=== PATIENT | male | born 1955 | race Caucasian/White ===

== ENCOUNTER → 2016-06-23 | Outpatient (CLI) | payer BC ==
[~2016-06-23] MED LIST: ADVIL200 MG PO; CYMBALTA30 MG PO; LIDODERM1 EACH TP; LYRICA25 MG PO; MELOXICAM15 MG PO; RELAFEN 750MG750 MG PO; TIZANIDINE HCL 44 MG NG
--- NOTE | 2016-06-24 10:28 | RADIOLOGY REPORT PS360 ---
US SOFT TISSUE HEAD/NECK HISTORY: Palpable region of the mandible on the right NEOPLASM RT JAW ORDERING PHYSICIAN: KRISTY TODD APRN PATIENT AGE: 61 years COMPARISON: None FINDINGS: There is a nonspecific oval area of decreased echogenicity in the subcutaneous tissues overlying the mandible on the right corresponding to the palpable abnormality. As measures 3 x 2 mm. This does have some low-level internal echoes not being completely cystic. The etiology is indeterminate based on the sonographic findings. Clinical correlation is required. IMPRESSION: Indeterminate 3 x 2 mm hypoechoic nodule in the subcutaneous tissues of the right jaw corresponding palpable abnormality.
== END ==
LOC: RAD 13:45
DX: D48.7 Neoplasm of uncertain behavior of other specified sites (principal)

== ENCOUNTER 2016-07-28 08:08 | Day surgery (SDC) | payer BC ==
[~2016-07-28] VITALS: Ht 180.3 cm; Wt 93.0 kg
[~2016-07-28 08:08] MED LIST changes: -LYRICA25 MG PO
[2016-07-28 08:21] VITALS: BP 138/80
[2016-07-28 08:37] VITALS: BP 138/80
[2016-07-28 08:38] VITALS: BP 140/94
--- NOTE | 2016-07-28 08:43 | Procedure Note ---
Procedure detail Date of procedure: 07/28/16 Anesthesiologist: Brandon Meier CRNA Complications: None Pre-procedure diagnosis: Degenerative disc disease of the lumbar spine. Post-procedure diagnosis: same Indications for procedure: This patient's a pleasant 61-year-old white male that were treating her pain but for chronic low back pain secondary to degenerative disease lumbar spine multiple levels lumbar radicular symptoms. Patient rates his low back pain 3/10. However, patient is complaining of bilateral lower leg and feet pain. He describes the pain as constant, dull, sharp, stabbing. I discussed in detail with the patient regarding a repeat lumbar epidural steroid injection. He wishes to proceed.we will perform this today Procedure detail: Procedure: Lumbar epidural steroid injection under fluoroscopy Informed consent was obtained and the risks and benefits of the procedure were explained to the patient. The patient was taken to the procedure room and noninvasive monitors placed, including noninvasive blood pressure cuff and pulse oximeter. The back was viewed using C-arm Fluoroscopy and prepped using Betadine as a cleansing solution and the L4-L5 interspace was palpated. Skin and subcutaneous tissues were anesthetized using lidocaine 1.5% and a 25-gauge needle. After this, an 18-gauge Touhy epidural needle was placed into the L4-L5 interspace and advanced using fluoroscopic guidance and loss of resistance to air until the epidural space was encountered. After confirmation of needle placement in the epidural space, with dye, a solution containing lidocaine 1.5%, 4 mL and Depo-Medrol 80 mg were incrementally injected into the lumbar epidural space. The patient tolerated the procedure well with no complications. The patient was observed in the Pain Clinic and then discharged home neurologically intact. Plan and disposition: We will follow up with this patient in our clinic and reassess his symptoms at that time at 0842
[2016-07-28 08:51] VITALS: BP 147/86
[2016-08-17] MEDS ORDERED: LYRICA25 MG PO (10:56)
== END 2016-07-28 08:52 | disposition home or self-care (01) ==
LOC: PM 08:08
PROC: 3E0R33Z Introduction of Anti-inflammatory into Spinal Canal, Percutaneous Approach (ICD-10-PCS; principal; 2016-07-28)
PROC: 3E0R3BZ Introduction of Anesthetic Agent into Spinal Canal, Percutaneous Approach (ICD-10-PCS; 2016-07-28)
DX: M51.36 Other intervertebral disc degeneration, lumbar region (principal)
CPT/HCPCS: J1040; Q9966

== ENCOUNTER → 2017-01-29 | Outpatient (CLI) | payer BC ==
[~2017-01-29] MED LIST changes: +LYRICA25 MG PO; +NEXIUM40 MG PO
--- NOTE | 2017-02-01 05:20 | RADIOLOGY REPORT PS360 ---
MRI-L-SPINE W/O, MRI-3D RENDERING/MYELOGRAM HISTORY: Right-sided low back pain and groin pain, bilateral leg pain and numbness and tingling right side worsening left LUMBAR PAIN WORSENING ORDERING PHYSICIAN: JAQUAN TOMAS CRNA PATIENT AGE: 62 years COMPARISON: None TECHNIQUE: Standard multiplanar multiecho sequences are performed without contrast. 3-D MIP and myelographic images are also rendered and reviewed FINDINGS: There is normal alignment. The spinal cord ends at the L1-L2 level. T11-T12: Degenerative disc disease. L1-L2: Mild degenerative disc disease. L2-L3: Unremarkable. L3-L4: Mild bulging disc along with mild facet and ligamentum flavum hypertrophy with mild bilateral lateral recess narrowing. L4-L5: Mild bilateral lateral recess and foraminal narrowing from facet and ligamentum flavum hypertrophy. L5-S1: Degenerative disc disease with bulging disc with facet and ligamentum flavum hypertrophy and mild bilateral foraminal narrowing. There is mild retrolisthesis of L5 on S1 of 3 mm. There is minimal ectasia of the infrarenal abdominal aorta at 2.4 cm. IMPRESSION: 1. Multilevel lumbar spondylosis with bulging discs along with facet and ligamentum hypertrophy with foraminal and lateral recess narrowing as detailed above. Please see above for detailed description at each level. 2. No disc herniation or canal stenosis.
== END ==
LOC: RAD 07:48
DX: M54.5 Low back pain (principal)

== ENCOUNTER → 2017-04-08 | Outpatient (CLI) | payer BC ==
--- NOTE | 2017-04-08 13:58 | RADIOLOGY REPORT PS360 ---
L-SPINE BEND 2-3 VIEWS ONLY CLINICAL INDICATION: Low back pain LUMBAR RADICULOPATHY ORDERING PHYSICIAN: REJI BOWER PATIENT AGE: 62 years COMPARISON: MRI of 01/29/2017 FINDINGS: Standing, flexion, and extension views are obtained of the lumbar spine. There does appear to be some mild anterolisthesis of L5 on S1 with flexion of approximately 5 to 6 mm. Mild degenerative disc disease is present at L3-L4 L4-L5 and L5-S1 with mild facet sclerosis at L5-S1. No lytic or blastic change. Mild decrease in height anteriorly is present at T 11 and T12 likely chronic. IMPRESSION: Mild anterolisthesis of L5 on S1 with flexion with mild degenerative disc disease and facet arthritic change
== END ==
LOC: RAD 13:20
DX: M54.5 Low back pain (principal); M54.16 Radiculopathy, lumbar region